=== PATIENT | female | born 1940 | race Caucasian/White ===

== ENCOUNTER 2017-01-18 07:04 | Day surgery (SDC) | payer MEDICARE, BC ==
[~2017-01-18] VITALS: Ht 165.1 cm; Wt 65.3 kg
[~2017-01-18 07:04] MED LIST: ALENDRONATE70 MG PO; ASPIRIN 81 LOW81 MG PO; ATIVAN0.5 MG PO; ISOSORB MONO60 M1 PO; LEVOTHYROXINE75 MCG PO; LOSARTAN POT50 MG PO; TENORMIN25 MG PO; VYTORIN1 TA3 PO
[2017-01-18 08:42] VITALS: BP 144/80
== END 2017-01-18 09:08 | disposition home or self-care (01) ==
LOC: ORM 07:04
PROVIDERS: ATTEND Surgery
PROC: 0DJD8ZZ Inspection of Lower Intestinal Tract, Via Natural or Artificial Opening Endoscopic (ICD-10-PCS; principal; 2017-01-18)
DX: R19.5 Other fecal abnormalities (principal); I25.10 Atherosclerotic heart disease of native coronary artery without angina pectoris; I10 Essential (primary) hypertension; E03.9 Hypothyroidism, unspecified; Z95.1 Presence of aortocoronary bypass graft

== ENCOUNTER 2019-01-20 19:09 | Emergency (ER) | payer MEDICARE, BC ==
[~2019-01-20] VITALS: Ht 165.1 cm; Wt 70.0 kg
[2019-01-20] MEDS ORDERED: CLARITHROMYC500 M2 PO (20:44)
[2019-01-20 21:26] VITALS: BP 160/80
== END 2019-01-20 21:30 | disposition home or self-care (01) ==
LOC: ED 19:09
DX: L03.113 Cellulitis of right upper limb (principal); S50.812A Abrasion of left forearm, initial encounter; S50.811A Abrasion of right forearm, initial encounter; I10 Essential (primary) hypertension; W55.03XA Scratched by cat, initial encounter

== ENCOUNTER 2021-07-21 18:20 | Emergency (ER) | payer MEDICARE, BC ==
[2021-07-21] VITALS (11 sets, daily range): BP systolic 136–171; BP diastolic 60–87
[~2021-07-21] VITALS: Ht 165.1 cm; Wt 78.0 kg
[~2021-07-21 18:20] MED LIST changes: +CLARITHROMYC500 M2 PO
[2021-07-21 18:59] LABS: HEMATOCRIT 37.1 % (37.0-47.0); HEMOGLOBIN 11.9 g/dl (12.0-16.0); IMMATURE GRANULOCYTES 0.3 % (0.0-5.0); MEAN CELL VOLUME 94.2 fL CALC (80.0-100.0); MEAN CORPUSCULAR HGB 30.2 pG CALC (26.0-32.0); MEAN CORPUSCULAR HGB CONC 32.1 g/dL CAL (32.0-36.0); NEUT# 6.9 thou/uL (2.00-7.15); RED BLOOD COUNT 3.94 mill/uL (4.20-5.60); RED CELL DISTRI WIDTH 14.3 % (11.5-15.5)
[2021-07-21 19:16] LABS: ALBUMIN 3.9 g/dL (3.2-5.0); ALKALINE PHOSPHATASE 73 u/l (38-126); ANION GAP 10 (6-22 (CALC)); BUN 22 mg/dL (8-23); BUN/CREATININE RATIO 33 (12-20 (CALC)); CARBON DIOXIDE 27 mmol/l (22-30); CHLORIDE 102 mmol/l (95-108); CREATININE 0.7 mg/dL (0.5-1.0); GFR > 60 ML/MIN (>=60 (CALC)); GFR FOR AFR.AMER. > 60 ML/MIN (>=60 (CALC)); POTASSIUM 4.4 mmol/l (3.5-5.1); SGOT/AST 24 u/l (9-36); SODIUM 135 mmol/l (137-146); TOTAL PROTEIN 7.1 g/dL (6.3-8.2)
[2021-07-22] VITALS: BP 162/77
[2021-07-22 00:30] VITALS: BP 167/63
[2021-07-22 01:00] VITALS: BP 167/71
[2021-07-22 01:30] VITALS: BP 150/70
[2021-07-22 02:01] VITALS: BP 159/65
[2021-07-22 02:35] VITALS: BP 159/65
== END 2021-07-22 02:37 | disposition short-term general hospital (02) ==
LOC: ED 18:20
PROVIDERS: Nurse Practitioner
DX: S72.142A Displaced intertrochanteric fracture of left femur, initial encounter for closed fracture (principal); I10 Essential (primary) hypertension; I25.10 Atherosclerotic heart disease of native coronary artery without angina pectoris; F03.90 Unspecified dementia, unspecified severity, without behavioral disturbance, psychotic disturbance, mood disturbance, and anxiety; W01.0XXA Fall on same level from slipping, tripping and stumbling without subsequent striking against object, initial encounter; Y92.099 Unspecified place in other non-institutional residence as the place of occurrence of the external cause; Z95.1 Presence of aortocoronary bypass graft

== ENCOUNTER 2022-09-24 16:15 | Inpatient (IN) | payer MEDICARE, BC ==
[~2022-09-24] VITALS: Ht 165.1 cm; Wt 79.0 kg
[~2022-09-24 16:15] MED LIST changes: +VITAMIN D325 MCG PO
--- NOTE | 2022-09-24 16:15 | NUR ---
PATIENT ARRIVED VIA EMS TO ED 10 S/P FALL AT [facility]. C/O RIGHT HIP & KNEE PAIN.
[2022-09-24 17:09] VITALS: BP 144/70
[2022-09-24 17:15] VITALS: BP 151/69
--- NOTE | 2022-09-24 18:15 | NUR ---
PATIENT RESTING COMFORTABLY, REPORTS NO PAIN WITHOUT MOVEMENT. AWAITING RESULTS.
--- NOTE | 2022-09-24 19:14 | NUR ---
[facility] HERE TO TRANSPORT PATIENT.
--- NOTE | 2022-09-24 19:20 | NUR ---
Spoke with son Ian who states everytime he visits his Mom joceline Hightower she is in a wheelchair and has not seen her ambulate since she broke her hip last year. Spoke with Juliann ([phone]) from [facility] who states they cannot take her back if she cannot stand and transfer. Son notified of admission and need for follow up with Case Mgmt on Monday am. Sons phone number is [phone]
--- NOTE | 2022-09-24 19:20 | NUR ---
3 NURSES WERE UNABLE TO GET PATIENT UP AND EVEN TO STAND AT BEDSIDE. PT IS UNCOOPERATIVE AND YELLING IN PAIN. PT IS STIFF AND PUSHING THE STAFF AWAY
--- NOTE | 2022-09-24 19:20 | NUR ---
REPORT RECIEVED FROM NATALIIA. PT RESTING IN ROOM COMFORTABLY. AWAITING TRANSPORRTATION.
[2022-09-24 19:27] VITALS: BP 123/70
--- NOTE | 2022-09-24 19:58 | NUR ---
Son Ian aware of planned admission and need to talk with Case Mgmt on Monday regarding POC.
[2022-09-24 20:21] LABS: BASO% 0.4 % (0-3); EOS% 1.9 % (0-8); HEMOGLOBIN 12.8 g/dl (12.0-16.0); IMMATURE GRANULOCYTES 0.2 % (0.0-5.0); LYMPH% 31.5 % (15-41); MEAN CELL VOLUME 91.5 fL CALC (80.0-100.0); MEAN CORPUSCULAR HGB 29.3 pG CALC (26.0-32.0); MONO% 10.5 % (2-13); NEUT# 2.91 thou/uL (2.00-7.15); NEUT% 55.5 % (42-76); RED BLOOD COUNT 4.37 mill/uL (4.20-5.60)
[2022-09-24 20:35] LABS: ALBUMIN 4.2 g/dL (3.2-5.0); ALKALINE PHOSPHATASE 96 u/l (38-126); ANION GAP 11 (6-22 (CALC)); BUN 19 mg/dL (8-23); BUN/CREATININE RATIO 30 (12-20 (CALC)); CARBON DIOXIDE 29 mmol/l (22-30); CHLORIDE 104 mmol/l (95-108); CREATININE 0.6 mg/dL (0.5-1.0); GFR FOR AFR.AMER. > 60 ML/MIN (>=60 (CALC)); GFR OTHER RACES > 60 ML/MIN (>=60 (CALC)); POTASSIUM 4.3 mmol/l (3.5-5.1); SGOT/AST 28 u/l (9-36); SODIUM 140 mmol/l (137-146); TOTAL PROTEIN 7.7 g/dL (6.3-8.2)
[2022-09-24 20:37] LABS: BILIRUBIN, TOTAL 0.4 mg/dL (0.02-1.3)
--- NOTE | 2022-09-24 21:12 | NUR ---
PT WAITING TO BE ADMITTED. FACILITY NOT WILLING TO TAKE PATIENT BACK BECAUSE SHE IS UNABLE TO BARE WEIGHT APPROPRIATELY. HIDE STRETCHER HAND AND CHARGE NURSEE MADE AWARE. PT IS RESTING COMFORTABLY IN ROOM.
[2022-09-24 22:51] VITALS: BP 153/74
--- NOTE | 2022-09-24 22:55 | NUR ---
PT ARRIVED TO FLOOR VIA STRETCHER ACCOMPANIED BY ER NURSE, X3 ASSIST FROM STRETCHER TO BED, PT UNABLE TO STAND DUE TO PAIN. PT C/O PAIN TO PELVIC AREA, PT DOES NOT TOLERATE MOVEMENT. PT ALERT TO SELF UNABLE TO PROVIDE BIRTHDAY, PT OBEYS COMMANDS BUT REQUIRES ASSITANCE. PURE WICK PLACED FOR COMFORT, BED ALARM FOR SAFETY, ORIENTED PT TO ROOM AND CALL LIGHT, NEEDS REINFORCEMENT. INITIATED IVF, ADMISSION ASSESSMENT COMPLETED, CALL LIGHT IN REACH,CONTINUE TO MONITOR.
[2022-09-24 23:30] VITALS: BP 153/74
[2022-09-24] MEDS ORDERED: NORVASC PO (23:41)
[2022-09-24] MEDS ORDERED: CA CITRATE250 MG PO (23:55)
[2022-09-24] MEDS ORDERED: CEROVIT2 PO (23:56)
[2022-09-24] MEDS ORDERED: DOK100 M1 PO (23:57)
[2022-09-24] MEDS ORDERED: ISOSORBIDE MONO60 MG PO (23:58)
[2022-09-24] MEDS ORDERED: LEVOTHYROXIN75 MC1 PO (23:58)
[2022-09-24] MEDS ORDERED: PROTONIX40 M2 PO (23:59)
[2022-09-24] MEDS ORDERED: REMERON7.5 MG PO (23:59)
[2022-09-25] VITALS (8 sets, daily range): BP systolic 122–161; BP diastolic 59–109
--- NOTE | 2022-09-25 00:18 | NUR ---
PT YELLING OUT, ENTERED ROOM PT HAD REMOVED PUREWICK, REPLACED. PT ASKING WHERE SHE IS, INFORMED PT OF SURROUNDINGS AND POC, PT NEEDS REINFORCEMENT, FORGETFUL, REPEATING SAME QUESTIONS. BED ALARM FOR SAFETY, CALL LIGHT IN REACH,CONTINUE TO MONITOR.
--- NOTE | 2022-09-25 01:00 | NUR ---
NURSE TRANSITIONAL CALLED FACILITY, SPOKE WITH STAFF MEMBER REGARDING PT'S MENTAL STATUS AT FACILITY. PER STAFF MEMBER PT IS ALERT AND ORIENTED X3. PUREWICK IN PLACE, UA OBTAINED, URINE IS CLOUDY, SENT TO LAB. RESULTS + FOR REFLEX TO CULTURE. NOTIFIED.
[2022-09-25 01:31] LABS: URINE BILIRUBIN - DIPSTICK NEGATIVE (NEGATIVE); URINE BLOOD DIPSTICK NEGATIVE (NEGATIVE); URINE COLOR YELLOW; URINE GLUCOSE - DIPSTICK NEGATIVE (NEGATIVE); URINE KETONE NEGATIVE (NEGATIVE); URINE LEUK ESTERASE SMALL (NEGATIVE); URINE NITRITE - DIPSTICK NEGATIVE (Negative); URINE PROTEIN - DIPSTICK NEGATIVE (NEG-TRACE); URINE UROBILINOGEN - DIPSTICK 0.2 E.U./dL (0.2)
[2022-09-25 01:34] LABS: URINE BACTERIA MANY hpf; URINE SQUAMOUS EPITHELIAL CELL FEW EPI/hpf (0-FEW)
--- NOTE | 2022-09-25 02:59 | NUR ---
PT RESTING IN BED WITH EYES CLOSED, NO SIGNS OF DISTRESS NOTED, RESP EVEN AND UNLABORED. CALL LIGHT IN REACH,CONTINUE TO MONITOR. BED ALARM FOR SAFETY.
--- NOTE | 2022-09-25 05:00 | NUR ---
PT RESTING IN BED, NO SIGNS OF DISTRESS NOTED, RESP EVEN AND UNLABORED. PT DENIES ANY NEEDS OR COMPLAINTS AT THIS TIME. CALL LIGHT IN REACH, BED ALARM FOR SAFETY, CONTINUE TO MONITOR.
--- NOTE | 2022-09-25 07:00 | NUR ---
BEDSIDE REPORT RECEIVED FROM PM NURSE. VSS. ALL SAFETY MEASURES IN PLACE. NO NEEDS AT THIS TIME.
--- NOTE | 2022-09-25 12:00 | NUR ---
PT SITTING UP IN BED. AOx4 AT THIS TIME. SON IN ROOM VISITING. ALL SAFETY MEASURES IN PLACE. NO NEEDS AT THIS TIME
--- NOTE | 2022-09-25 19:20 | NUR ---
PT IN BED AWAKE. BREATHIS EVEN AND UNLABORED. NO S/S OF DISTRESS. PT IS A&O TO PERSON AND CONFUSED. PT STATES SHE NEEDS TO GET HER KIDS READT FOR SCHOOL. PT REORIENTED. DENIES PAIN OR DISCOMFORT. IV TO RAC 2OG INFUSING NS AT 100ML/HR. PEREWICK IN PLACE. PT IS BLIND. NO NEEDS OR CONCERN VOICED AT THIS TIME CALL LIGHT IN REACH AND BED IN LOWEST POSITION.
--- NOTE | 2022-09-26 00:55 | NUR ---
PT IN BED AWAKE DENIES PAIN OR DICOMFORT. BREATHING IS EVEN AND UNLABORED. NO S/S OF DISTRESS NOTED CALL LIGHT IN REACH AND BED IN LOWEST POSITION. CALL LIGHT IN REACH AND BED IN LOWEST POSITION.
--- NOTE | 2022-09-26 04:25 | NUR ---
PT IN BED RESTING WITH EYES CLOSED BREATHING IS EVEN AND UNLABORED. NO S/S OF DISTRESS NOTED BED ALARM ON. CALL LIGHT IN REACH AND BED IN LOWSET POSITION.
[2022-09-26 06:34] VITALS: BP 145/63
--- NOTE | 2022-09-26 07:28 | NUR ---
PT RESTING IN LOW FOWLERS POSITION. A/O TO SELF. RESPIRATIONS ON ROOM AIR. IV SITE NOTED. HEART RHYTHM NORM. PT ON PURE WICK . PT DENIES ADDITIONAL NEEDS AT THE TIME ALL SAFETY PRECAUTIONS IN PLACE WITH ALCIDES LIGHT INREACH.
[2022-09-26 08:32] VITALS: BP 151/87
--- NOTE | 2022-09-26 12:25 | NUR ---
PT COMPLAINED OF PAIN WHILE BOOSTED IN BED. CONFIRMED WITH PHARMACY IF PT ABLE TO RECIEVE 1200 DOSE IF PT HAS NOT MET Q6 HR TIME REFERRAL . PHARMACIST STATED IF VS STABLE AND PT STILL IN PAIN OKAY TO ADMINISTER. REFERED BACK WITH PT ASKED AGAIN PAIN SCALE PT STATED " I FEEL FINE" ASKED PT IF WAS SURE IF NO PAIN WAS FELT. PT STATED THERE WAS NO PAIN TO BE CONCEREND OF. NEXT SCHEDULED DOSE 1800. PT AWARE. ALL SAFETY PRECAUTIONS WITH CALL LIGHT INREACH BED ALARM ACTIVE.
[2022-09-26 14:56] VITALS: BP 121/57
--- NOTE | 2022-09-26 15:53 | NUR ---
PT RESTING IN LOW FOWLERSPOSITION.A/O TO SELF PT DENIES ADDITIONAL NEEDS AT THE TIME ALL SAFETY PRECAUTIONS IN PLACE .BED ALARMACTIVE.
[2022-09-26 19:05] VITALS: BP 138/65
--- NOTE | 2022-09-26 20:20 | NUR ---
RECEIVED BEDSIDE REPORT FROM DAYSHIFT NURSE. PT IS LYING IN BED IN SEMIFOWLERS POSITION. ADVISED PT OF CHANGE OF NURSE FOR THE NIGHT. CALL LIGHT WITHIN REACH AND SAFETY PRECAUTIONS IN PLACE.
[2022-09-27] VITALS (7 sets, daily range): BP systolic 128–161; BP diastolic 65–87
--- NOTE | 2022-09-27 00:20 | NUR ---
PT IS SLEEPING COMFORTABLY. NO SIGNS OF PAIN OR DISTRESS . CALL LIGHT WITHIN REACH AND SAFETY PRECAUTIONS IN PLACE.
--- NOTE | 2022-09-27 04:20 | NUR ---
PT IS SLEEPING COMFORTABLY. NO SIGNS OF PAIN OR DISTRESS AT THE MOMENT. CALL LIGHT WITHIN BERT AND SAFETY PRECAUTIONS IN PLACE.
[2022-09-27 06:23] LABS: HEMATOCRIT 37.4 % (37.0-47.0); MEAN CELL VOLUME 92.1 fL CALC (80.0-100.0); MEAN CORPUSCULAR HGB 29.6 pG CALC (26.0-32.0); MEAN CORPUSCULAR HGB CONC 32.1 g/dL CAL (32.0-36.0); RED BLOOD COUNT 4.06 mill/uL (4.20-5.60); RED CELL DISTRI WIDTH 14.2 % (11.5-15.5)
[2022-09-27 06:32] LABS: ALBUMIN 3.7 g/dL (3.2-5.0); ALKALINE PHOSPHATASE 86 u/l (38-126); ANION GAP 11 (6-22 (CALC)); BILIRUBIN, TOTAL 0.2 mg/dL (0.02-1.3); BUN 27 mg/dL (8-23); BUN/CREATININE RATIO 31 (12-20 (CALC)); CARBON DIOXIDE 22 mmol/l (22-30); CHLORIDE 111 mmol/l (95-108); CREATININE 0.9 mg/dL (0.5-1.0); GFR FOR AFR.AMER. > 60 ML/MIN (>=60 (CALC)); GFR OTHER RACES 60 ML/MIN (>=60 (CALC)); MAGNESIUM 1.9 mg/dL (1.6-2.3); POTASSIUM 4.5 mmol/l (3.5-5.1); SGOT/AST 27 u/l (9-36); SODIUM 139 mmol/l (137-146); TOTAL PROTEIN 6.7 g/dL (6.3-8.2)
--- NOTE | 2022-09-27 08:00 | NUR ---
RECEIVE REPORT FROM RAYRAY BEARD. PT STABLE AT THIS TIME. RESTING WITH EYE CLOSED. VITAL SIGNS STABLE AT THIS TIME. PT IS EDUCATED ABOUD MEDICATIONS AND NURSING PLAN FOR TODAY. PT REFER UNDERSTAND. SAFETY AND FALL PRECAUTIONS IN PLACE. CALL LIGHT WITHIN IN REACH.
--- NOTE | 2022-09-27 12:00 | NUR ---
PATIENT STABLE AT THE TIME. RESTING IN BED CONFORTABLE. SAFETY AND FALL PRECAUTIONS IN PLACE. CALL LIGHT WITHIN IN REACH.
--- NOTE | 2022-09-27 16:27 | NUR ---
PATIENT STABLE AT THE TIME OF THIS NOTE.
--- NOTE | 2022-09-27 19:10 | NUR ---
REPOR RECEIVED FROM Andreea DONOVAN RN
[2022-09-28] VITALS (7 sets, daily range): BP systolic 120–161; BP diastolic 67–82
--- NOTE | 2022-09-28 | NUR ---
ATIENT RESTING, NO APPARENT DISTRESS NOTED. CALL LIGHT AND BEDSIDE TABLE WITHIN REACH. BED ALAMR ON FOR SAFETY.
--- NOTE | 2022-09-28 04:30 | NUR ---
PATIENT RESTING, NO APPARENT DISTRESS NOTED. CALL LIGHT AND BEDSIDE TABLE WITHIN REACH. BED ALAMR ON FOR SAFETY.
--- NOTE | 2022-09-28 08:00 | NUR ---
PT SITTING IN CHAIR LISTENING TO THE SOUNDS IN THE HALLWAY. ALL SAFETY MEASURES IN PLACE. VSS.
--- NOTE | 2022-09-28 12:00 | NUR ---
PT SITTING IN CHAIR LISTENING TO THE SOUNDS IN THE HALLWAY. ALL SAFETY MEASURES IN PLACE. VSS. PT IS STILL REFUSING MEDICATIONS. WILL TRY TO GET HER TO TAKE THEM LATER IN THE DAY.
--- NOTE | 2022-09-28 20:00 | NUR ---
RECEIVED REPORT FROM NURSE KESHIA, PATIENT SITTING CHAIR, PATIENT IS ALERT TO NAME AND BDAY NOT YEAR, CONFUSION NOTED, WAS NOTED TO BE PICKING AT HER DIAPER AND DIGGING POOP, PATIENT CLEANED AND INCONTINENT CARE PROVIDED, PATIENT DENIES PAIN REFUSED TO TAKE HER PAIN MEDICATION, PATIENT PUREWICK DRAINING YELLOW CLOUDY URINE, PATIENT ASSISTED BACK IN BED BED ALARM IN PLACE.
--- NOTE | 2022-09-29 | NUR ---
PATIENT RESTING IN BED, EYES CLOSED, NOT IN DISTRESS, REFUSED, PAIN MEDICATION, CALL LIGHT IN REACH, BED ALARM IN PLACE.
--- NOTE | 2022-09-29 04:08 | NUR ---
JAZMINE RESTING IN BED, EYES CLOSED, NO DISCOMFORTS NOTED AT THIS TIME, BREATHING UNLABORED CALL LIGHT IN REACH, BED ALARM IN PLAXCE.
[2022-09-29 04:37] VITALS: BP 151/60
[2022-09-29 06:55] VITALS: BP 151/65
[2022-09-29 07:30] VITALS: BP 151/65
--- NOTE | 2022-09-29 07:38 | NUR ---
BEDSIDE REPORT RECIEVED, WHITEBOARD UPDATED, PATIENT IN BED, NO S/S OF DISTRESS, NO NEEDS AT THIS TIME, PATIENT SAFETY MEASURES IN PLACE.
[2022-09-29 09:09] VITALS: BP 151/65
[2022-09-29] MEDS ORDERED: TRAMADOL HCL50 MG PO (09:42)
--- NOTE | 2022-09-29 12:00 | NUR ---
PATIENT IN BED, LUNCH ASSISTANCE GIVEN, NO S/S OF DITRESS. PATIENT SAFETY PRECAUTIONS IN PLACE.
--- NOTE | 2022-09-29 13:45 | NUR ---
PATIENT LEFT VIA WHEELCHAIR WITH REHAB STAFF, IV REMOVED, PATIENT IN STABLE CONDITION,PACKET GIVEN TO REHAB STAFF,
== END 2022-09-29 13:45 | DRG 552 ==
LOC: ED 16:15 → MS2 21:06
PROVIDERS: ADMIT Internal Medicine; ATTEND Internal Medicine
DX: M54.50 Low back pain, unspecified (principal); M25.561 Pain in right knee; M25.551 Pain in right hip; R53.1 Weakness; I10 Essential (primary) hypertension; F03.90 Unspecified dementia, unspecified severity, without behavioral disturbance, psychotic disturbance, mood disturbance, and anxiety; I25.10 Atherosclerotic heart disease of native coronary artery without angina pectoris; F41.9 Anxiety disorder, unspecified; E03.9 Hypothyroidism, unspecified; W19.XXXA Unspecified fall, initial encounter; Y93.89 Activity, other specified; Y92.092 Bedroom in other non-institutional residence as the place of occurrence of the external cause
CPT/HCPCS: J1650

== ENCOUNTER 2022-11-17 07:46 | Emergency (ER) | payer MEDICARE, BC ==
[~2022-11-17] VITALS: Ht 165.1 cm; Wt 61.0 kg
[2022-11-17] VITALS (11 sets, daily range): BP systolic 132–181; BP diastolic 69–123
[~2022-11-17 07:46] MED LIST changes: +CA CITRATE250 MG PO; +CEROVIT2 PO; +DOK100 M1 PO; +ISOSORBIDE MONO60 MG PO; +LEVOTHYROXIN75 MC1 PO; +NORVASC PO; +PROTONIX40 M2 PO; +REMERON7.5 MG PO; +TRAMADOL HCL50 MG PO
[2022-11-17 09:02] LABS: BASO% 0.3 % (0-3); EOS% 0.5 % (0-8); IMMATURE GRANULOCYTES 0.2 % (0.0-5.0); MEAN CELL VOLUME 89.7 fL CALC (80.0-100.0); MEAN CORPUSCULAR HGB 29.1 pG CALC (26.0-32.0); MEAN CORPUSCULAR HGB CONC 32.5 g/dL CAL (32.0-36.0); MONO% 9.3 % (2-13); NEUT# 4.32 thou/uL (2.00-7.15); NEUT% 67.7 % (42-76); RED BLOOD COUNT 4.94 mill/uL (4.20-5.60); RED CELL DISTRI WIDTH 13.4 % (11.5-15.5)
[2022-11-17 09:03] LABS: HEMATOCRIT 44.3 % (37.0-47.0); HEMOGLOBIN 14.4 g/dl (12.0-16.0)
[2022-11-17 09:08] LABS: ALBUMIN 4.3 g/dL (3.2-5.0); ALKALINE PHOSPHATASE 100 u/l (38-126); ANION GAP 16 (6-22 (CALC)); BUN 17 mg/dL (8-23); BUN/CREATININE RATIO 25 (12-20 (CALC)); CARBON DIOXIDE 20 mmol/l (22-30); CHLORIDE 106 mmol/l (95-108); CREATININE 0.7 mg/dL (0.5-1.0); GFR FOR AFR.AMER. > 60 ML/MIN (>=60 (CALC)); GFR OTHER RACES > 60 ML/MIN (>=60 (CALC)); POTASSIUM 4.4 mmol/l (3.5-5.1); SGOT/AST 46 u/l (9-36); SODIUM 137 mmol/l (137-146)
[2022-11-17 09:16] LABS: BILIRUBIN, TOTAL 0.7 mg/dL (0.02-1.3); TOTAL PROTEIN 8.5 g/dL (6.3-8.2)
== END 2022-11-17 12:35 | disposition home or self-care (01) ==
LOC: ED 07:46
PROVIDERS: Family Medicine
DX: I10 Essential (primary) hypertension (principal); F03.90 Unspecified dementia, unspecified severity, without behavioral disturbance, psychotic disturbance, mood disturbance, and anxiety; E03.9 Hypothyroidism, unspecified; K21.9 Gastro-esophageal reflux disease without esophagitis; I25.10 Atherosclerotic heart disease of native coronary artery without angina pectoris; Z95.1 Presence of aortocoronary bypass graft

== ENCOUNTER 2023-12-18 13:35 | Inpatient (IN) | payer MEDICARE, BC ==
[2023-12-18] VITALS (19 sets, daily range): BP systolic 93–163; BP diastolic 43–123
[~2023-12-18] VITALS: Ht 152.4 cm; Wt 53.8 kg
[~2023-12-18 13:35] MED LIST changes: +CARDIZEM60 MG PO
[2023-12-18] MEDS ORDERED: Diph, Acellular Pertussis, Tet 0.5 ML/VIAL (Tdap) SDV IM ONE (13:45)
[2023-12-18 16:30] LABS: BASO% 0.2 % (0-3); EOS% 2.2 % (0-8); HEMATOCRIT 40.8 % (37.0-47.0); HEMOGLOBIN 13.1 g/dl (12.0-16.0); IMMATURE GRANULOCYTES 0.2 % (0.0-5.0); LYMPH% 33.9 % (15-41); MEAN CELL VOLUME 91.1 fL CALC (80.0-100.0); MEAN CORPUSCULAR HGB 29.2 pG CALC (26.0-32.0); MEAN CORPUSCULAR HGB CONC 32.1 g/dL CAL (32.0-36.0); MONO% 10.7 % (2-13); NEUT# 2.68 thou/uL (2.00-7.15); NEUT% 52.8 % (42-76); RED BLOOD COUNT 4.48 mill/uL (4.20-5.60); RED CELL DISTRI WIDTH 13.8 % (11.5-15.5)
[2023-12-18 16:47] LABS: ALBUMIN 3.9 g/dL (3.2-5.0); BILIRUBIN, TOTAL 0.3 mg/dL (0.02-1.3); CREATININE 0.7 mg/dL (0.5-1.0)
[2023-12-18 17:08] LABS: URINE BILIRUBIN - DIPSTICK Negative (NEGATIVE); URINE BLOOD DIPSTICK Trace-intact (NEGATIVE); URINE GLUCOSE - DIPSTICK Negative (NEGATIVE); URINE KETONE Negative (NEGATIVE); URINE NITRITE - DIPSTICK Negative (Negative); URINE PROTEIN - DIPSTICK 30 mg/dL (NEG-TRACE); URINE SPECIFIC GRAVITY 1.025; URINE UROBILINOGEN - DIPSTICK 0.2 E.U./dL (0.2)
[2023-12-18 17:15] LABS: URINE COLOR Yellow; URINE LEUK ESTERASE Small (NEGATIVE)
[2023-12-18 17:21] LABS: URINE AMORPH SEDIMENT MANY hpf (NONE-FEW); URINE BACTERIA FEW hpf; URINE SQUAMOUS EPITHELIAL CELL MODERATE EPI/hpf (0-FEW)
[2023-12-18] MEDS ORDERED: cefTRIAXone SODIUM 2 GM in SODIUM CHLORIDE 0.9% 100 ML IV ONE (17:30)
[2023-12-18] MEDS ORDERED: SODIUM CHLORIDE 0.9% 1,000 ML IV PRN (17:45)
[2023-12-18] MEDS ORDERED: MAGNESIUM HYDROXIDE 30 ML UDC PO PRN (17:45)
[2023-12-18] MEDS ORDERED: ACETAMINOPHEN 325 MG/TAB PO PRN (17:45)
[2023-12-18] MEDS ORDERED: LOPRESSOR25 M1 PO (20:22)
[2023-12-18] MEDS ORDERED: ENOXAPARIN SODIUM 40 MG/0.4 ML SYR SC SCH (21:00)
[2023-12-18] MEDS ORDERED: METOPROLOL TARTRATE 25 MG/TAB PO SCH (21:36)
[2023-12-19] VITALS (13 sets, daily range): BP systolic 102–141; BP diastolic 47–110
[2023-12-19] MEDS ORDERED: LEVOTHYROXINE SODIUM 75 MCG/TAB PO SCH (06:00)
[2023-12-19] MEDS ORDERED: PANTOPRAZOLE SODIUM Sesquihydr 40 MG/TAB PO SCH (09:00)
[2023-12-19] MEDS ORDERED: amLODIPine BESYLATE 5 MG/TAB PO SCH (09:00)
[2023-12-19] MEDS ORDERED: ISOSORBIDE MONONITRATE 60 MG/TAB PO SCH (09:00)
[2023-12-19] MEDS ORDERED: MIRTAZAPINE 15 MG/TAB PO SCH (21:00)
[2023-12-20] VITALS (10 sets, daily range): BP systolic 112–160; BP diastolic 50–68
[2023-12-20 05:11] LABS: BASO% 0.4 % (0-3); HEMATOCRIT 38.6 % (37.0-47.0); IMMATURE GRANULOCYTES 0.2 % (0.0-5.0); LYMPH% 44.3 % (15-41); MEAN CELL VOLUME 90.2 fL CALC (80.0-100.0); MEAN CORPUSCULAR HGB 30.4 pG CALC (26.0-32.0); MEAN CORPUSCULAR HGB CONC 33.7 g/dL CAL (32.0-36.0); NEUT# 1.94 thou/uL (2.00-7.15); NEUT% 41.1 % (42-76); RED BLOOD COUNT 4.28 mill/uL (4.20-5.60); RED CELL DISTRI WIDTH 13.6 % (11.5-15.5)
[2023-12-20 05:27] LABS: ALBUMIN 3.7 g/dL (3.2-5.0); CREATININE 0.6 mg/dL (0.5-1.0); MAGNESIUM 1.8 mg/dL (1.6-2.3); POTASSIUM 3.8 mmol/l (3.5-5.1); TOTAL PROTEIN 6.7 g/dL (6.3-8.2)
[2023-12-20 05:32] LABS: BILIRUBIN, TOTAL 0.5 mg/dL (0.02-1.3)
[2023-12-21 03:59] VITALS: BP 108/40
[2023-12-21 04:24] VITALS: BP 108/40
[2023-12-21 04:33] LABS: BASO% 0.2 % (0-3); EOS% 1.9 % (0-8); HEMATOCRIT 41.4 % (37.0-47.0); HEMOGLOBIN 13.7 g/dl (12.0-16.0); IMMATURE GRANULOCYTES 0.2 % (0.0-5.0); LYMPH% 47.7 % (15-41); MEAN CELL VOLUME 90.2 fL CALC (80.0-100.0); MEAN CORPUSCULAR HGB 29.8 pG CALC (26.0-32.0); MEAN CORPUSCULAR HGB CONC 33.1 g/dL CAL (32.0-36.0); MONO% 10.7 % (2-13); NEUT# 1.68 thou/uL (2.00-7.15); NEUT% 39.3 % (42-76); RED BLOOD COUNT 4.59 mill/uL (4.20-5.60); RED CELL DISTRI WIDTH 13.7 % (11.5-15.5)
[2023-12-21 04:44] LABS: ALBUMIN 3.8 g/dL (3.2-5.0); BILIRUBIN, TOTAL 0.3 mg/dL (0.02-1.3); CREATININE 0.8 mg/dL (0.5-1.0); MAGNESIUM 2.1 mg/dL (1.6-2.3); POTASSIUM 4.1 mmol/l (3.5-5.1)
[2023-12-21 07:12] VITALS: BP 122/90
[2023-12-21 09:26] VITALS: BP 158/66
[2023-12-21 10:26] VITALS: BP 158/66
== END 2023-12-21 11:24 | DRG 690 ==
LOC: ED 13:35 → ED-I 17:15 → ED 17:34 → MS2 17:35
PROVIDERS: Family Medicine; Nurse Practitioner Family; ADMIT Internal Medicine; ATTEND Internal Medicine
DX: N39.0 Urinary tract infection, site not specified (principal); B96.89 Other specified bacterial agents as the cause of diseases classified elsewhere; I10 Essential (primary) hypertension; I25.10 Atherosclerotic heart disease of native coronary artery without angina pectoris; F03.90 Unspecified dementia, unspecified severity, without behavioral disturbance, psychotic disturbance, mood disturbance, and anxiety; S01.81XA Laceration without foreign body of other part of head, initial encounter; S51.812A Laceration without foreign body of left forearm, initial encounter; F41.9 Anxiety disorder, unspecified; E03.9 Hypothyroidism, unspecified; I48.91 Unspecified atrial fibrillation; W01.0XXA Fall on same level from slipping, tripping and stumbling without subsequent striking against object, initial encounter; Y92.099 Unspecified place in other non-institutional residence as the place of occurrence of the external cause; Z95.1 Presence of aortocoronary bypass graft
CPT/HCPCS: J1650

== ENCOUNTER 2024-07-10 19:28 | Emergency (ER) | payer MEDICARE, BC ==
[~2024-07-10] VITALS: Ht 165.1 cm; Wt 52.0 kg
[2024-07-10] VITALS (8 sets, daily range): BP systolic 121–151; BP diastolic 53–130
[~2024-07-10 19:28] MED LIST changes: +LOPRESSOR25 M1 PO
[2024-07-10 19:57] LABS: BASO% 0.5 % (0-3); EOS% 3.6 % (0-8); HEMATOCRIT 39.2 % (37.0-47.0); HEMOGLOBIN 12.6 g/dl (12.0-16.0); IMMATURE GRANULOCYTES 0.2 % (0.0-5.0); MEAN CELL VOLUME 91.6 fL CALC (80.0-100.0); MEAN CORPUSCULAR HGB 29.4 pG CALC (26.0-32.0); MEAN CORPUSCULAR HGB CONC 32.1 g/dL CAL (32.0-36.0); MONO% 9.3 % (2-13); NEUT% 47.4 % (42-76); RED BLOOD COUNT 4.28 mill/uL (4.20-5.60); RED CELL DISTRI WIDTH 13.7 % (11.5-15.5)
[2024-07-10 20:08] LABS: ALBUMIN 4.3 g/dL (3.2-5.0); BILIRUBIN, TOTAL 0.4 mg/dL (0.02-1.3); CREATININE 0.8 mg/dL (0.5-1.0)
[2024-07-10] MEDS ORDERED: NITROFURANTOIN MONOHYDRATE/MAC (MACROBID) 100 MG/CAP PO ONE (20:35)
[2024-07-10 20:53] LABS: URINE BILIRUBIN - DIPSTICK Negative (NEGATIVE); URINE BLOOD DIPSTICK Moderate (NEGATIVE); URINE GLUCOSE - DIPSTICK Negative (NEGATIVE); URINE KETONE Trace mg/dL (NEGATIVE); URINE PROTEIN - DIPSTICK >=300 mg/dL (NEG-TRACE); URINE SPECIFIC GRAVITY 1.025; URINE UROBILINOGEN - DIPSTICK 0.2 E.U./dL (0.2)
[2024-07-10 20:54] LABS: URINE COLOR Yellow; URINE LEUK ESTERASE Large (NEGATIVE); URINE NITRITE - DIPSTICK Positive (Negative)
[2024-07-10 20:56] LABS: URINE BACTERIA MANY hpf; URINE WBC >100 WBC/hpf (0-5)
[2024-07-10] MEDS ORDERED: PEPCID20 MG PO (21:30)
[2024-07-10] MEDS ORDERED: CEPHALEXIN MONOHYDRATE 500 MG/CAP PO ONE (21:35)
[2024-07-10] MEDS ORDERED: KEFLEX500 MG PO (23:12)
== END 2024-07-10 22:15 | disposition home or self-care (01) ==
LOC: ED 19:28
PROVIDERS: Family Medicine
DX: S00.83XA Contusion of other part of head, initial encounter (principal); S00.81XA Abrasion of other part of head, initial encounter; N39.0 Urinary tract infection, site not specified; B96.89 Other specified bacterial agents as the cause of diseases classified elsewhere; I10 Essential (primary) hypertension; I25.10 Atherosclerotic heart disease of native coronary artery without angina pectoris; F03.90 Unspecified dementia, unspecified severity, without behavioral disturbance, psychotic disturbance, mood disturbance, and anxiety; W06.XXXA Fall from bed, initial encounter; Y92.129 Unspecified place in nursing home as the place of occurrence of the external cause; Z74.01 Bed confinement status; Z95.1 Presence of aortocoronary bypass graft